=== PATIENT | female | born 1985 | race American Indian/Alaskan Native ===

== ENCOUNTER 2018-04-21 18:46 | Emergency (ER) | payer MEDICAID, OTHER ==
[2018-04-21] MEDS ORDERED: ZOFRAN IV ONE (19:33)
[2018-04-21 19:40] LABS: Basophils % (Auto) 0.1 % (0.0-1.8); Eosinophils # (Auto) 0.1 K/mm3 (0.0-0.4); Eosinophils % (Auto) 0.6 % (0.0-4.3); Hematocrit 34.3 % (30.3-42.9); Hemoglobin 11.8 gm/dl (10.1-14.3); Lymphocytes % (Auto) 11.5 % (13.4-35.0); Mean Corpuscular HGB Conc 35 % (30-34); Mean Corpuscular Hemoglobin 32 pg (28-32); Mean Corpuscular Volume 93 fl (79-97); Monocytes # (Auto) 1.1 K/mm3 (0.0-0.8); Platelet Count 289 K/mm3 (140-440); Red Blood Count 3.71 M/mm3 (3.65-5.03); Red Cell Distribution Width 13.8 % (13.2-15.2)
[2018-04-21 19:56] LABS: Alanine Aminotransferase 40 units/L (7-56); Albumin 4.4 g/dL (3.9-5); BUN/Creatinine Ratio 13; Blood Urea Nitrogen 9 mg/dL (7-17); Calcium 9.2 mg/dL (8.4-10.2); Hemolysis Index 26
[2018-04-21] MEDS ORDERED: D5NS 1,000 ML IV SCH (20:00)
[2018-04-21 20:20] LABS: Bacteria,Urine 2+ /HPF (Negative); Bilirubin,Urine NEG (Negative); Blood,Urine NEG (Negative); Color,Urine Amber (Yellow); Mucus,Urine FEW /HPF; Urobilinogen,Urine < 2.0 mg/dL (<2.0)
--- NOTE | 2018-04-21 21:48 | Emergency Department Report ---
ED N/V/D HPI - General Chief complaint: Nausea/Vomiting/Diarrhea Stated complaint: NAUSEA/VOMITING Time Seen by Provider: 04/21/18 19:20 Source: EMS Mode of arrival: Stretcher Limitations: No Limitations - History of Present Illness Initial comments: 32-year-old female presents to the hospital currently 16 weeks complains of rated 12 episodes of vomiting since this morning. Patient states that she went swimming in a chlorine pool yesterday. Patient complains of mild headache and abdominal soreness. She denies hematemesis, fever, diarrhea, dysuria, vaginal bleeding, or vaginal discharge. Patient has had care with [facility]. This is patient's third and she has a history one miscarriage and one ectopic treated with methotrexate. Patient states she's been dealing with a tooth infection for the last several weeks ago. She completely recently completed 2 courses of antibiotics. She states that she had an abscess to her gumline that was draining but it has since stopped. She is scheduled for dental surgery in 2 days. - Related Data Previous Rx's Medication Instructions Recorded Last Taken Type Acetaminophen/Codeine 1 tab PO Q6H PRN #12 tab 02/01/15 Unknown Rx [Acetaminophen-Codeine #3 TAB] Hyoscyamine Subl [Levsin Sl] 0.250 mg SL Q4HR PRN #12 tablet 02/01/15 Unknown Rx Ibuprofen [Motrin 400 MG tab] 400 mg PO Q8H PRN #20 tablet 02/01/15 Unknown Rx Penicillin Vk [Veetids TAB] 500 mg PO Q6H #40 tablet 02/01/15 Unknown Rx Promethazine [Phenergan] 25 mg PO Q6H PRN #10 tablet 02/01/15 Unknown Rx Amoxicillin/K Clav Tab [Augmentin 1 tab PO Q12HR #14 tab 04/21/18 Unknown Rx 875 mg] Ondansetron [Zofran Odt] 4 mg PO Q8HR PRN #20 tab.rapdis 04/21/18 Unknown Rx Allergies Allergy/AdvReac Type Severity Reaction Status Date / Time No Known Allergies Allergy Unverified 05/31/14 15:26 ED Review of Systems ROS: Stated complaint: NAUSEA/VOMITING Other details as noted in HPI Comment: All other systems reviewed and negative ED Past Medical Hx - Past Medical History Hx Hypertension: Yes Additional medical history: Ectopic treated with methotrexate - Surgical History Hx Appendectomy: Yes - Social History Smoking Status: Former Smoker Substance Use Type: None - Medications Home Medications: Home Medications Medication Instructions Recorded Confirmed Last Taken Type Acetaminophen/Codeine 1 tab PO Q6H PRN #12 tab 02/01/15 Unknown Rx [Acetaminophen-Codeine #3 TAB] Hyoscyamine Subl [Levsin Sl] 0.250 mg SL Q4HR PRN #12 tablet 02/01/15 Unknown Rx Ibuprofen [Motrin 400 MG tab] 400 mg PO Q8H PRN #20 tablet 02/01/15 Unknown Rx Penicillin Vk [Veetids TAB] 500 mg PO Q6H #40 tablet 02/01/15 Unknown Rx Promethazine [Phenergan] 25 mg PO Q6H PRN #10 tablet 02/01/15 Unknown Rx Amoxicillin/K Clav Tab [Augmentin 1 tab PO Q12HR #14 tab 04/21/18 Unknown Rx 875 mg] Ondansetron [Zofran Odt] 4 mg PO Q8HR PRN #20 tab.rapdis 04/21/18 Unknown Rx ED Physical Exam - General Limitations: No Limitations - Other Other exam information: General: No limitations, mild distress due to nausea vomiting Head exam: Atraumatic, normocephalic Eyes exam: Normal appearance ENT: Dry mucous membranes. No apical abscess noted at this time Neck exam: Normal inspection, full range of motion, no meningismus nontender Respiratory exam: Clear to auscultation bilateral, no wheezes, rales, crackles Cardiovascular: Normal rate and rhythm, normal heart sounds Abdomen: Soft, nondistended, and nontender, with normal bowel sounds, no rebound, or guarding Extremity: Full range of motion normal inspection no deformity Back: Normal Inspection, full range of motion, no tenderness Neurologic: Alert, oriented x3, cranial nerves intact, no motor or sensory deficit Psychiatric: normal affect, normal mood Skin: Warm, dry, intact ED Course Vital Signs 04/21/18 04/21/18 04/21/18 19:03 19:30 22:09 Temperature 99.1 F 98.7 F Pulse Rate 109 H 92 H 84 Respiratory 19 18 Rate Blood Pressure 103/73 Blood Pressure 96/57 100/66 [Left] O2 Sat by Pulse 100 100 98 Oximetry - Reevaluation(s) Reevaluation #1: 04/21/18 21:50 see medical decision making - Consultations Consultation #1: 04/21/18 22:28 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 Patient will be discharged home and encouraged to call tomorrow for follow-up ED Medical Decision Making - Lab Data Result diagrams: 04/21/18 19:19 04/21/18 19:19 Lab Results 04/21/18 04/21/18 04/21/18 Range/Units 19:19 19:19 19:19 WBC 17.6 H (4.5-11.0) K/mm3 RBC 3.71 (3.65-5.03) M/mm3 Hgb 11.8 (10.1-14.3) gm/dl Hct 34.3 (30.3-42.9) % MCV 93 (79-97) fl MCH 32 (28-32) pg MCHC 35 H (30-34) % RDW 13.8 (13.2-15.2) % Plt Count 289 (140-440) K/mm3 Lymph % (Auto) 11.5 L (13.4-35.0) % Elmore % (Auto) 6.0 (0.0-7.3) % Eos % (Auto) 0.6 (0.0-4.3) % Baso % (Auto) 0.1 (0.0-1.8) % Lymph # 2.0 (1.2-5.4) K/mm3 Elmore # 1.1 H (0.0-0.8) K/mm3 Eos # 0.1 (0.0-0.4) K/mm3 Baso # 0.0 (0.0-0.1) K/mm3 Seg Neutrophils % 81.8 H (40.0-70.0) % Seg Neutrophils # 14.4 H (1.8-7.7) K/mm3 Sodium 134 L (137-145) mmol/L Potassium 4.2 (3.6-5.0) mmol/L Chloride 97.8 L (98-107) mmol/L Carbon Dioxide 21 L (22-30) mmol/L Anion Gap 19 mmol/L BUN 9 (7-17) mg/dL Creatinine 0.7 (0.7-1.2) mg/dL Estimated GFR > 60 ml/min BUN/Creatinine Ratio 13 % Glucose 87 (65-100) mg/dL Calcium 9.2 (8.4-10.2) mg/dL Total Bilirubin 1.00 (0.1-1.2) mg/dL AST 27 (5-40) units/L ALT 40 (7-56) units/L Alkaline Phosphatase 34 L (35-129) units/L Total Protein 7.4 (6.3-8.2) g/dL Albumin 4.4 (3.9-5) g/dL Albumin/Globulin Ratio 1.5 % Lipase 83 H (13-60) units/L HCG, Quant (0-4) mIU/mL Urine Color (Yellow) Urine Turbidity (Clear) Urine pH (5.0-7.0) Ur Specific [place] (1.003-1.030) Urine Protein (Negative) mg/dL Urine Glucose (UA) (Negative) mg/dL Urine Ketones (Negative) mg/dL Urine Blood (Negative) Urine Nitrite (Negative) Urine Bilirubin (Negative) Urine Urobilinogen (<2.0) mg/dL Ur Leukocyte Esterase (Negative) Urine WBC (Auto) (0.0-6.0) /HPF Urine RBC (Auto) (0.0-6.0) /HPF U Epithel Cells (Auto) (0-13.0) /HPF Urine Bacteria (Auto) (Negative) /HPF Urine Mucus /HPF 04/21/18 04/21/18 Range/Units 19:19 20:08 WBC (4.5-11.0) K/mm3 RBC (3.65-5.03) M/mm3 Hgb (10.1-14.3) gm/dl Hct (30.3-42.9) % MCV (79-97) fl MCH (28-32) pg MCHC (30-34) % RDW (13.2-15.2) % Plt Count (140-440) K/mm3 Lymph % (Auto) (13.4-35.0) % Elmore % (Auto) (0.0-7.3) % Eos % (Auto) (0.0-4.3) % Baso % (Auto) (0.0-1.8) % Lymph # (1.2-5.4) K/mm3 Elmore # (0.0-0.8) K/mm3 Eos # (0.0-0.4) K/mm3 Baso # (0.0-0.1) K/mm3 Seg Neutrophils % (40.0-70.0) % Seg Neutrophils # (1.8-7.7) K/mm3 Sodium (137-145) mmol/L Potassium (3.6-5.0) mmol/L Chloride (98-107) mmol/L Carbon Dioxide (22-30) mmol/L Anion Gap mmol/L BUN (7-17) mg/dL Creatinine (0.7-1.2) mg/dL Estimated GFR ml/min BUN/Creatinine Ratio % Glucose (65-100) mg/dL Calcium (8.4-10.2) mg/dL Total Bilirubin (0.1-1.2) mg/dL AST (5-40) units/L ALT (7-56) units/L Alkaline Phosphatase (35-129) units/L Total Protein (6.3-8.2) g/dL Albumin (3.9-5) g/dL Albumin/Globulin Ratio % Lipase (13-60) units/L HCG, Quant 29913 H (0-4) mIU/mL Urine Color Alexandra (Yellow) Urine Turbidity Clear (Clear) Urine pH 6.0 (5.0-7.0) Ur Specific [place] 1.029 (1.003-1.030) Urine Protein 100 mg/dl (Negative) mg/dL Urine Glucose (UA) Neg (Negative) mg/dL Urine Ketones Tr (Negative) mg/dL Urine Blood Neg (Negative) Urine Nitrite Neg (Negative) Urine Bilirubin Neg (Negative) Urine Urobilinogen < 2.0 (<2.0) mg/dL Ur Leukocyte Esterase Tr (Negative) Urine WBC (Auto) 6.0 (0.0-6.0) /HPF Urine RBC (Auto) 4.0 (0.0-6.0) /HPF U Epithel Cells (Auto) 60.0 H (0-13.0) /HPF Urine Bacteria (Auto) 2+ (Negative) /HPF Urine Mucus Few /HPF - Medical Decision Making Nausea and vomiting in . Improved with Zofran. Patient received 1 of D5 NS reports feeling better Leukocytosis noted with recent history of tooth infection Patient will be placed on Augmentin to give a history of dental infection and encouraged to follow up with [facility] and her dentist as scheduled Patient tolerating by mouth intake prior to discharge - Differential Diagnosis viral syndrome gastroenteritis, hyperemesis, UTI Critical Care Time: No Critical care attestation.: If time is entered above; I have spent that time in minutes in the direct care of this critically ill patient, excluding procedure time. ED Disposition Clinical Impression: Nausea and vomiting, , Dental infection Disposition: TO HOME OR SELFCARE Is pt being admited?: No Does the pt Need Aspirin: No Condition: Stable Instructions: (ED), Acute Nausea and Vomiting (ED), Dental Abscess ( ED) Additional Instructions: Take the medication is prescribed. Call your [facility] doctor tomorrow to schedule follow-up. Follow-up with the dentist as scheduled. Return if symptoms worsen as indicated by your discharge instructions. Prescriptions: Amoxicillin/K Clav Tab [Augmentin 875 mg] 1 tab PO Q12HR #14 tab Ondansetron [Zofran Odt] 4 mg PO Q8HR PRN #20 tab.rapdis PRN Reason: Nausea And Vomiting Referrals: your, dentist [Other] - 3-5 Days [facility] [Provider Group] - 3-5 Days Time of Disposition: 22:30
[2018-04-21 22:10] VITALS: BP 100/66
== END 2018-04-21 23:04 | disposition home or self-care (01) ==
LOC: ED 18:46
DX: O26.891 Other specified pregnancy related conditions, first trimester (principal); R11.2 Nausea with vomiting, unspecified; I10 Essential (primary) hypertension; Z90.49 Acquired absence of other specified parts of digestive tract; Z87.891 Personal history of nicotine dependence; Z3A.16 16 weeks gestation of pregnancy
CPT/HCPCS: 36415; 80053; 81001; 83690; 84702; 85025; 96365; 96375; 99284; J2405; J7042

== ENCOUNTER 2018-08-12 14:00 | Outpatient (CLI) | payer MEDICAID ==
[2018-08-12 15:04] VITALS: BP 123/72
--- NOTE | 2018-08-12 17:01 | Ultrasound Report ---
FINAL REPORT EXAM: US OB BPP WO NON-STRESS HISTORY: DECREASE MOVEMENT TECHNIQUE: Real-time sonography was performed of the gravid uterus for biophysical profile and images are submitted for interpretation. PRIORS: None. FINDINGS: There is a single fetus in the uterus in a cephalic presentation. The placenta is anterior and the os is clear. The heart is beating at a rate of 144 beats per minute. Biophysical profile: Breathin Movement: 2 Tone: 2 Fluid volume: 2 IMPRESSION: Normal biophysical profile, 06/26
--- NOTE | 2018-08-12 17:43 | Event Note ---
32yo 32 weeks transferred from clinic due to decreased movement. States no movement 3pm Sunday until placed on NST today. Sent to L&D for biophysical profile. BPP 06/26. NST in clinic reactive. Plan: F/U in clinic weekly with NST Reviewed kick counts Encouraged patient to come to hospital [facility] if no movement elicited at home. Do not wait til next day.
== END 2018-08-12 16:35 | disposition home or self-care (01) ==
LOC: TRG 14:00
PROVIDERS: ATTEND Obstetrics & Gynecology
DX: O47.03 False labor before 37 completed weeks of gestation, third trimester (principal); Z3A.32 32 weeks gestation of pregnancy; Z90.49 Acquired absence of other specified parts of digestive tract
CPT/HCPCS: 59025; 76819

== ENCOUNTER 2019-02-07 14:24 | Outpatient (CLI) | payer MEDICAID ==
--- NOTE | 2019-02-07 16:40 | Ultrasound Report ---
PROCEDURE: Transvaginal pelvic ultrasound. TECHNIQUE: Real-time transvaginal sonography in multiple planes of the pelvis was performed with papi ge documentation. HISTORY: PLEASE BRING WHEELCHAIR, INTENSE LLQ PAIN COMPARISONS: None. FINDINGS: The myometrium has inhomogeneous echogenicity. There are at least 3 focal masses consistent with leio myomas. The mass in the fundus measures 1.8 cm in maximum dimension. This has some increased echoes s uggesting possible calcification. The largest mass is in the lower portion of the uterus measuring 2. 6 cm in maximum dimension. The endometrial echo complex is suboptimally demonstrated. Both ovaries ap pear normal in size. Both ovaries contain small follicles. There is a dominant follicle in the left o vary measuring 1.8 cm in diameter. Doppler evaluation of blood flow in the ovaries was not performed. There is a small amount of free fluid in the cul-de-sac. IMPRESSION: Multiple uterine leiomyomas. Dominant left ovarian follicle measuring 1.8 cm. This document is electronically signed by Reese Vernon MD., February 08 2019 06:54:07 AM ET
== END 2019-02-07 14:25 | disposition home or self-care (01) ==
LOC: US 14:24
PROVIDERS: ATTEND Advanced Practice Midwife
DX: D25.9 Leiomyoma of uterus, unspecified (principal); Z90.49 Acquired absence of other specified parts of digestive tract
CPT/HCPCS: 76830; 76856